=== PATIENT | male | born 1960 ===

== ENCOUNTER 2016-12-01 15:00 | Observation (INO) | payer OTHER ==
[~2016-12-01] VITALS: Ht 162.6 cm; Wt 62.0 kg
[2016-12-01 16:01] LABS: BASOPHILS 0.3 % (0-2); EOSINOPHILS 0.2 % (0-7); HEMATOCRIT 43.4 % (42.0-54.0); HEMOGLOBIN 15.3 g/dL (13.5-17.5); IMMATURE GRANULOCYTES 0.2 % (0-5); LYMPHOCYTES 29.5 % (15-50); MCH 32.4 pg (26.0-34.0); MCHC 35.3 g/dL (31.0-37.0); MCV 91.9 fL (80.0-100.0); MEAN PLATELET VOLUME 8.8 fL (7.4-10.4); MONOCYTES 6.1 % (2-11); NEUTROPHILS 63.7 % (40-80); PLATELET COUNT 183 10x3/uL (130-400); RBC 4.72 10x6/uL (4.20-6.10); RDW 12.9 % (11.5-14.5); WBC 6.2 10x3/uL (4.8-10.8)
[2016-12-01 17:23] LABS: APTT 30.7 SECONDS (22.8-39.4); INR 1.2 (0.85-1.17); PROTIME 15.1 SECONDS (11.6-15.0)
[2016-12-01 18:03] LABS: BASOPHILS 0.3 % (0-2); EOSINOPHILS 0.2 % (0-7); HEMATOCRIT 42.9 % (42.0-54.0); HEMOGLOBIN 14.9 g/dL (13.5-17.5); IMMATURE GRANULOCYTES 0.2 % (0-5); LYMPHOCYTES 33.3 % (15-50); MCH 32.2 pg (26.0-34.0); MCHC 34.7 g/dL (31.0-37.0); MCV 92.7 fL (80.0-100.0); MEAN PLATELET VOLUME 9.1 fL (7.4-10.4); MONOCYTES 6.5 % (2-11); NEUTROPHILS 59.5 % (40-80); PLATELET COUNT 197 10x3/uL (130-400); RBC 4.63 10x6/uL (4.20-6.10); WBC 5.9 10x3/uL (4.8-10.8)
[2016-12-01 18:19] LABS: ALBUMIN 4.1 g/dL (3.4-5.0); ANION GAP 10.1 mmol/L (8-16); BILIRUBIN - TOTAL 0.98 mg/dL (0.2-1.3); CALCIUM 9.4 mg/dL (8.5-10.1); CARBON DIOXIDE 31.9 mmol/L (21.0-32.0); CREATININE - SERUM 1.1 mg/dL (0.6-1.3); PROTEIN - SERUM 7.9 g/dL (6.4-8.2)
--- NOTE | 2016-12-01 20:03 | NUR ---
ASSISTED BACK TO BED. BSC CONTAINED SMALL AMOUNT OF CLEAR MUSCUS. REPLACED SCD'S, TURNED ON BED ALARM.
--- NOTE | 2016-12-01 21:57 | NUR ---
REC VIA WC, ESCORTED BY RADIOLGY TECH. HE WENT FOR A GI SCAN FROM ER. HE IS ALERT AND ORIENTED X4. DENIES ANY PAIN. 18G IV IN R AC INTACT. NPO PER ORDER. AMBULATED TO BR WITH STEADY GAIT. HIS IS PRESENT IN ROOM. ORIENTED TO ROOM AND CALL LIGHT.
[2016-12-01 23:06] LABS: BASOPHILS 0.3 % (0-2); EOSINOPHILS 0.9 % (0-7); HEMATOCRIT 39.1 % (42.0-54.0); HEMOGLOBIN 13.6 g/dL (13.5-17.5); IMMATURE GRANULOCYTES 0.2 % (0-5); LYMPHOCYTES 38.4 % (15-50); MCH 32.2 pg (26.0-34.0); MCHC 34.8 g/dL (31.0-37.0); MCV 92.7 fL (80.0-100.0); MEAN PLATELET VOLUME 8.7 fL (7.4-10.4); MONOCYTES 6.8 % (2-11); NEUTROPHILS 53.4 % (40-80); PLATELET COUNT 158 10x3/uL (130-400); RBC 4.22 10x6/uL (4.20-6.10); WBC 5.8 10x3/uL (4.8-10.8)
[2016-12-02] VITALS (7 sets, daily range): BP systolic 126–145; BP diastolic 71–90; Ht 162.6 cm; Wt 62.0 kg
[2016-12-02 05:40] LABS: BASOPHILS 0.2 % (0-2); EOSINOPHILS 0.9 % (0-7); HEMATOCRIT 39.5 % (42.0-54.0); HEMOGLOBIN 13.5 g/dL (13.5-17.5); LYMPHOCYTES 32.5 % (15-50); MCH 31.8 pg (26.0-34.0); MCHC 34.2 g/dL (31.0-37.0); MCV 92.9 fL (80.0-100.0); MEAN PLATELET VOLUME 9.4 fL (7.4-10.4); MONOCYTES 8.6 % (2-11); NEUTROPHILS 57.8 % (40-80); PLATELET COUNT 178 10x3/uL (130-400); RBC 4.25 10x6/uL (4.20-6.10); RDW 13.1 % (11.5-14.5); WBC 4.3 10x3/uL (4.8-10.8)
--- NOTE | 2016-12-02 07:00 | NUR ---
RECEIVED REPORT. ASSUMED CARE OF PATIENT. CALL LIGHT WITHIN REACH. RESP EVEN AND UNLABORED. PATIENT AWAKE, ALERT/ORIENTED. DENIES NEEDS AT THIS TIME. PATIENT REPORTS TENDERNESS TO LOWER ABDOMEN, DENIES ANY FURTHER BLOOD BOWEL MOVEMENTS OR ANY BOWEL MOVEMENTS AT ALL SINCE ADMISSION TO UNIT. PATIENTS AT BEDSIDE. PATIENT MADE AWARE OF NPO STATUS. NO DISTRESS.
--- NOTE | 2016-12-02 10:45 | NUR ---
RESTING IN BED WITH EYES OPEN. FEMALE VISITOR AT BEDSIDE. PATIENT DENIES ANY FURTHER BLOODY STOOL. DENIES ANY NEEDS AT THIS TIME. NO DISTRESS.
--- NOTE | 2016-12-02 15:00 | NUR ---
RESTING IN BED. DENIES NEEDS. FAMILY AT BEDSIDE. CALL LIGHT WITHIN REACH. NO DISTRESS.
--- NOTE | 2016-12-02 19:37 | NUR ---
BRADEN TRAY GIVEN AT PT REQUEST, STATES THAT HE NEVER RECIEVED A DINNER TRAY. NO OHTER NEEDS STATED AT THIS TIME, BED LOW, CL IN REACH. FAMILY AT BED SIDE.
--- NOTE | 2016-12-02 21:32 | NUR ---
ANUSOL SUPP. GIVEN ORDERED. NO NEEDS VOICED AT THIS TIME.
[2016-12-03] VITALS: BP 113/69
--- NOTE | 2016-12-03 00:19 | NUR ---
BLEND PLANT OPERATOR AT BED SIDE TO OBTAIN VITALS. WILL CONT PLAN OF CARE.
[2016-12-03 04:00] VITALS: BP 109/68
--- NOTE | 2016-12-03 04:04 | NUR ---
RESTING WITH EYES CLOSED, RESPERATIONS EVEN, NO S/S DISTRESS NOTED.
[2016-12-03 05:25] LABS: BASOPHILS 0.4 % (0-2); EOSINOPHILS 0.9 % (0-7); HEMATOCRIT 38.7 % (42.0-54.0); HEMOGLOBIN 13.5 g/dL (13.5-17.5); IMMATURE GRANULOCYTES 0.2 % (0-5); LYMPHOCYTES 31.2 % (15-50); MCH 32.5 pg (26.0-34.0); MCHC 34.9 g/dL (31.0-37.0); NEUTROPHILS 59.3 % (40-80); PLATELET COUNT 173 10x3/uL (130-400); RBC 4.16 10x6/uL (4.20-6.10); WBC 4.7 10x3/uL (4.8-10.8)
[2016-12-03 05:47] LABS: ALBUMIN 3.3 g/dL (3.4-5.0); ANION GAP 7.5 mmol/L (8-16); BILIRUBIN - TOTAL 0.54 mg/dL (0.2-1.3); CALCIUM 8.8 mg/dL (8.5-10.1); CARBON DIOXIDE 32.8 mmol/L (21.0-32.0); CREATININE - SERUM 1.2 mg/dL (0.6-1.3); POTASSIUM - SERUM 4.3 mmol/L (3.5-5.1); PROTEIN - SERUM 6.7 g/dL (6.4-8.2)
--- NOTE | 2016-12-03 07:05 | NUR ---
RECEIVED REPORT. ASSUMED CARE OF PATIENT. CALL LIGHT WITHIN REACH. PATIENT ALERT/AWAKE. SITTING UP IN BED. REQUESTING COFFEE. RESP EVEN AND UNLABORED. REPORTS NO BLOODY STOOL THROUGH THE NIGHT. NO DISTRESS.
--- NOTE | 2016-12-03 07:25 | NUR ---
COFFEE PROVIDED UPON REQUEST AT THIS TIME.
[2016-12-03 08:15] VITALS: BP 131/80
[2016-12-03] MEDS ORDERED: ANUSOL-HC25 MG RC (11:17)
--- NOTE | 2016-12-03 11:36 | NUR ---
DR. WHITESIDE HERE FOR ROUNDS AND PATIENT WILL BE DISCHARGED TO HOME TODAY.
[2016-12-03 12:08] VITALS: BP 131/87
--- NOTE | 2016-12-03 13:53 | NUR ---
1345 18 IV CATHETER REMOVED FROM RIGHT AC. NO BLEEDING FROM SITE. 2X2 GAUZE APPLIED AND SECURED WITH TAPE. CATHETER TIP INTACT. 1348 DISCHARGE INSTRUCTIONS PROVIDED TO PATIENT AND HIS . BOTH VERBALIZED UNDERSTANDING OF ALL INSTRUCTIONS PROVIDED. ENCOURAGED PATIENT TO CALL IF HE HAS ANY QUESTIONS ONCE HE GETS HOME. VERBALIZED UNDERSTANDING. 1352 PATIENT INSISTS ON AMBULATING OFF UNIT. PATIENT LEFT UNIT WITH ALL PERSONAL BELONGINGS IN NO DISTRESS.
== END 2016-12-03 13:52 | disposition home or self-care (01) ==
LOC: D.ER 15:00 → D.M2 19:27 → OBSVTIME 19:27 → D.M2 19:27
PROVIDERS: Emergency Medicine; Family Medicine; Nurse Practitioner Acute Care; ADMIT Family Medicine
DX: K92.1 Melena (principal); Z72.0 Tobacco use